=== PATIENT | female | born 1985 | race Caucasian/White ===

== ENCOUNTER 2020-10-09 13:13 | Emergency (ER) | payer OTHER ==
[~2020-10-09] VITALS: Ht 152.4 cm; Wt 63.0 kg
[2020-10-09 13:25] VITALS: BP 112/83; Ht 152.4 cm; Wt 63.0 kg
[2020-10-09] MEDS ORDERED: MOT600 PO (14:44)
[2020-10-09] MEDS ORDERED: MACROBID100 MG PO (14:44)
[2020-10-09] MEDS ORDERED: ULTRAM50 MG PO (14:44)
== END 2020-10-09 15:04 | disposition home or self-care (01) ==
LOC: ED 13:13
DX: N39.0 Urinary tract infection, site not specified (principal); R51.9 Headache, unspecified